=== PATIENT | male | born 1965 | race Caucasian/White ===

== ENCOUNTER 2022-11-11 12:38 | Outpatient (RCR) | payer OTHER, SELFPAY | END 2023-04-28 16:00 | disposition home or self-care (01) | LOC: HO.WCC 12:38 | PROVIDERS: PCP Internal Medicine; Visit Provider Surgery | DX: E11.621 Type 2 diabetes mellitus with foot ulcer (principal); L97.521 Non-pressure chronic ulcer of other part of left foot limited to breakdown of skin; L97.522 Non-pressure chronic ulcer of other part of left foot with fat layer exposed; E11.40 Type 2 diabetes mellitus with diabetic neuropathy, unspecified; L84 Corns and callosities; I10 Essential (primary) hypertension; I95.1 Orthostatic hypotension | CPT/HCPCS: 11042; 15275; 17250; 97597; 99212; Q4187 ==

== ENCOUNTER 2023-04-01 12:46 | Outpatient (REF) | payer OTHER, SELFPAY ==
--- NOTE | ~2023-04-01 | MR_ITS ---
EXAMINATION: MRI foot with and without contrast, left INDICATION: NONHEALING WOUND L METATARSAL HEAD, R/O OSTEO COMPARISON: None TECHNIQUE: Multiplanar MR imaging was obtained through the left foot on a 1.5 Sonia magnet before and after intravenous administration of 9 mL Gadavist. FINDINGS: There is significant edema signal and enhancement in the subcutaneous soft tissues at the plantar and medial aspects of the first MTP joint. A small focal skin wound is present at the plantar soft tissues at the level of the sesamoids, measuring approximately 5 x 5 mm in area. No underlying peripherally enhancing fluid collections are identified indicating an abscess. The underlying marrow is normal in signal intensity at the sesamoids and first metatarsal head without appreciable findings of osteomyelitis. No findings of septic arthritis or septic tenosynovitis. Intrinsic foot musculature demonstrates diffuse fatty replacement with mild associated edema signal in the remaining muscle fibers. Tendons are grossly intact without appreciable tears or tenosynovitis. Multiple claw toe deformities. No fractures. Joints appear relatively well-preserved. Plantar fascia is unremarkable. MR/MR foot LT wo/w con IMPRESSION: Small skin wound at the plantar aspect of the first MTP joint with surrounding cellulitis. No abscess. No evidence of osteomyelitis or septic arthritis.
== END 2023-04-01 12:47 | disposition home or self-care (01) ==
LOC: HO.MRI 12:46
PROVIDERS: PCP Internal Medicine; Visit Provider Physician Assistant
DX: E11.621 Type 2 diabetes mellitus with foot ulcer (principal); L97.522 Non-pressure chronic ulcer of other part of left foot with fat layer exposed
CPT/HCPCS: 73720; A9585